=== PATIENT | male | born 2000 | race Caucasian/White ===

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

== ENCOUNTER 2019-02-07 01:37 | Emergency (ER) | payer MEDICAID ==
[2019-02-07] MEDS ORDERED: KETOROLAC 30 MG/ML VIAL IVP ONE (02:00)
[2019-02-07 02:14] LABS: ABSOLUTE NEUTROPHIL COUNT 3.29; BASO % 0.5 % (0-6); EOS % 1.7 % (0-6); GRAN % 55.9 % (47-80); HEMATOCRIT 41.6 % (42.0-52.0); HEMOGLOBIN 14.5 gm/dl (14.0-18.0); LYMPH % 33.7 % (16-45); MEAN CELL VOLUME 82.4 fl (81-97); MEAN CORPUSCULAR HEMOGLOBIN 28.7 pg (27-33); MEAN CORPUSCULAR HGB CONC 34.9 g/dl (32-36); MEAN PLATELET VOLUME 10.4 fl (7.4-10.4); MONO % 8.2 % (0-9); PLATELET COUNT 282 K/uL (130-400); RED BLOOD COUNT 5.05 M/uL (4.40-5.70); WHITE BLOOD COUNT W/O DIFF 5.9 K/uL (4.2-12.2)
[2019-02-07] MEDS ORDERED: 0.9 % SODIUM CHLORIDE 1,000 ML BAG IV ONE (02:53)
--- NOTE | 2019-02-07 03:09 | Emergency Department Record ---
History of Present Illness - General Chief complaint: Male Urogenital Problem Stated complaint: GROIN PAIN Time Seen by Provider: 02/07/19 01:52 Source: Patient Mode of Arrival: Ambulatory Limitations: No limitations - History of Present Illness Initial comments: pt states his l testicle has been hurting for 3 days and is getting worse. it hurts into his groin. he was seen in [facility] and was told he needed an us. it has been scheduled for next week MD Complaint: Testicle pain Onset/Timin -: Days(s) Location: Left inguinal region, Left testicle Severity scale (1-10): 9 Quality: Aching, Sharp Consistency: Constant Improves with: None Worsens with: None Reports: Denies other symptoms - Related Data Sexually active: No Previous Rx's Medication Instructions Recorded Doxycycline Hyclate 100 mg PO BID #20 cap 02/07/19 Allergies Allergy/AdvReac Type Severity Reaction Status Date / Time Penicillins Allergy PT UNSURE Unverified 02/06/19 18:38 OF REACTION Travel Screening - Travel/Exposure Within Last 30 Days Have you traveled within the last 30 days?: No - Travel/Exposure Within Last Year Have you traveled outside the [place] in the last year?: No - Additonal Travel Details Have you been exposed to anyone with a communicable illness?: No Review of Systems Reviewed: No additional complaints except as noted below Constitutional: Reports: As per HPI. Denies: Chills, Fever, Malaise, Night sweats, Weakness, Weight change Eyes: Reports: As per HPI. Denies: Eye discharge, Eye pain, Photophobia, Vision change ENT: Reports: As per HPI. Denies: Congestion, Dental pain, Ear pain, Epistaxis, Hearing loss, Throat pain Respiratory: Reports: As per HPI. Denies: Cough, Dyspnea, Hemoptysis, Stridor, Wheezes Cardiovascular: Reports: As per HPI. Denies: Arrhythmia, Chest pain, Dyspnea on exertion, Edema, Murmurs, Orthopnea, Palpitations, Paroxysmal nocturnal dyspnea, Rheumatic Fever, Syncope Endocrine: Reports: As per HPI. Denies: Fatigue, Heat or cold intolerance, Polydipsia, Polyuria Gastrointestinal: Reports: As per HPI. Denies: Abdominal pain, Constipation, Diarrhea, Hematemesis, Hematochezia, Melena, Nausea, Vomiting Genitourinary: Reports: As per HPI, Testicular pain. Denies: Dysuria, Frequency, Hematuria, Incontinence, Retention, Testicular mass, Urgency Musculoskeletal: Reports: As per HPI. Denies: Arthralgia, Back pain, Gout, Joint swelling, Myalgia, Neck pain Skin: Reports: As per HPI. Denies: Bruising, Change in color, Change in hair/nails, Lesions, Pruritus, Rash Neurological: Reports: As per HPI. Denies: Abnormal gait, Confusion, Headache, Numbness, Paresthesias, Seizure, Tingling, Tremors, Vertigo, Weakness Psychiatric: Reports: As per HPI. Denies: Anxiety, Auditory hallucinations, Depression, Homicidal thoughts, Suicidal thoughts, Visual hallucinations Hematological/Lymphatic: Reports: As per HPI. Denies: Anemia, Blood Clots, Easy bleeding, Easy bruising, Swollen glands Past Medical History - SOCIAL HISTORY Smoking Status: Never smoker Alcohol Use: None Drug Use: Occasional Drug Use Detail:: Marijuana - RESPIRATORY Hx Respiratory Disorders: Yes Hx Asthma: Yes - CARDIOVASCULAR Hx Cardio Disorders: No - NEURO Hx Neuro Disorders: No - GI Hx GI Disorders: No - Hx Genitourinary Disorders: No - ENDOCRINE Hx Endocrine Disorders: Yes Hx Thyroid Disease: Yes - MUSCULOSKELETAL Hx Musculoskeletal Disorders: No - PSYCH Hx Psych Problems: No - HEMATOLOGY/ONCOLOGY Hx Hematology/Oncology Disorders: No Family Medical History Any Significant Family History?: No Hx Cancer: Grandparents Hx Diabetes: Grandparents Physical Exam - General General Appearance: Alert, Oriented x3, Cooperative, Mild distress - Head Head exam: Normal inspection - Eye Eye exam: Normal appearance, PERRL, EOMI Pupils: Normal accommodation - ENT ENT exam: Normal exam, Mucous membranes moist, Normal external ear exam, Normal orophraynx Ear exam: Normal external inspection. negative: External canal tenderness Nasal Exam: Normal inspection. negative: Discharge, Sinus tenderness Mouth exam: Normal external inspection, Tongue normal Teeth exam: Normal inspection. negative: Dental caries Throat exam: Normal inspection. negative: Tonsillar erythema, Tonsillar exudate - Neck Neck exam: Normal inspection, Full ROM. negative: Tenderness - Respiratory Respiratory exam: Normal lung sounds bilaterally. negative: Respiratory di stress - Cardiovascular Cardiovascular Exam: Regular rate, Normal rhythm, Normal heart sounds - GI/Abdominal GI/Abdominal exam: Soft, Normal bowel sounds. negative: Tenderness - Rectal Rectal exam: Deferred - exam: Testicular tenderness, Other (tender into inguinal canal) - Extremities Extremities exam: Normal inspection, Full ROM, Normal capillary refill. negative: Tenderness - Back Back exam: Reports: Normal inspection, Full ROM. Denies: Muscle spasm, Rash noted, Tenderness - Neurological Neurological exam: Alert, CN II-XII intact, Normal gait, Oriented X3 - Psychiatric Psychiatric exam: Normal affect, Normal mood - Skin Skin exam: Dry, Intact, Normal color, Warm Course Vital Signs 02/07/19 01:43 Temperature 98.1 F Pulse Rate [ 80 Pulse Ox Probe] Respiratory 20 Rate Blood Pressure 119/75 [Left Arm] Pulse Ox 99 - Reevaluation(s) Reevaluation #1: 02/07/19 03:40 ct neg Reevaluation #2: 02/07/19 03:45 pt being treated for epididimytis but being transferred for us to r/o torsion Medical Decision Making - Lab Data Result diagrams: 02/07/19 02:05 02/07/19 02:05 Lab Results 02/07/19 Range/Units 02:05 WBC 5.9 (4.2-12.2) K/uL RBC 5.05 (4.40-5.70) M/uL Hgb 14.5 (14.0-18.0) gm/dl Hct 41.6 L (42.0-52.0) % MCV 82.4 (81-97) fl MCH 28.7 (27-33) pg MCHC 34.9 (32-36) g/dl RDW 12.0 (11.5-14.5) % Plt Count 282 (130-400) K/uL MPV 10.4 (7.4-10.4) fl Gran % 55.9 (47-80) % Lymphocytes % 33.7 (16-45) % Monocytes % 8.2 (0-9) % Eosinophils % 1.7 (0-6) % Basophils % 0.5 (0-6) % Absolute Neutrophils 3.29 Disposition Disposition: Transfer Clinical Impression: Acute epididymitis, Testicular pain, left Disposition: Acute Care Hospital Transfer Transfer To: [facility] Reason For Transfer: needs us of testicle Accepting Physician: dr lowery Time Discussed w/Accepting Physician: 03:42 Condition: (2) Stable Instructions: Epididymo-Orchitis (ED), Scrotal Pain (ED), Testicle Pain (ED) Additional Instructions: go directly to [facility] er for Prescriptions: Doxycycline Hyclate 100 mg PO BID #20 cap Forms: Patient Portal Access Quality - Quality Measures Quality Measures: N/A - Blood Pressure Screening Does Patient Have Any of the Following: No Blood Pressure Classification: Normal BP Reading Systolic Measurement: 119 Diastolic Measurement: 75 Screening for High Blood Pressure: < Normal BP, F/U Not Required > [G8783]
[2019-02-07 03:10] LABS: URINE APPEARANCE CLEAR; URINE BILIRUBIN NEGATIVE (NEGATIVE); URINE BLOOD NEGATIVE (NEGATIVE); URINE COLOR YELLOW; URINE GLUCOSE (UA) NEGATIVE (NEGATIVE); URINE KETONE NEGATIVE (NEGATIVE); URINE LEUKOCYTE ESTERASE NEGATIVE (NEGATIVE); URINE NITRITE NEGATIVE (NEGATIVE); URINE PROTEIN NEGATIVE (NEGATIVE); URINE UROBILINOGEN 0.2 E.U./dL (0.20 - 1.00)
[2019-02-07] MEDS ORDERED: CEFTRIAXONE 250 MG VIAL IM ONE (03:33)
[2019-02-07 03:40] LABS: BLOOD UREA NITROGEN 9 mg/dL (6-20); CREATININE 0.7 mg/dL (0.7-1.2); EST GLOMERULAR FILTRATION RATE > 60 mL/min
[2019-02-07 03:42] LABS: GLUCOSE,RANDOM 125 mg/dL (74-109)
[2019-02-07] MEDS ORDERED: DOXYCYCLINE HYCLATE 100 MG CAPSULE PO ONE (03:42)
--- NOTE | 2019-02-11 06:56 | CT SCAN REPORT ---
EXAM: CT SCAN PELVIS W CONTRAST HISTORY: GROIN AND LEFT TESTICULAR PAIN. COMPARISON: None. TECHNIQUE: After the uneventful administration of intravenous contrast, contiguous CT sections obtained through the pelvis in the axial plane. Coronal and sagittal reformats. FINDINGS: GI tract within the pelvis is nondilated. A normal appendix is seen. Urinary bladder is low in volume limiting evaluation but appears grossly unremarkable. No free air or fluid evident. No adenopathy. The pelvic wall and inguinal regions appear intact without evidence for herniation. Bones appear grossly unremarkable. IMPRESSION: 1. ETIOLOGY FOR THE PATIENT'S PAIN NOT EVIDENT. 2. A PRELIMINARY REPORT PROVIDED BY THE RADIOLOGIST KITCHEN WORK SUPERVISOR. JOB NUMBER: [id number] MTDD
== END 2019-02-07 03:55 | disposition short-term general hospital (02) ==
LOC: ER 01:37
DX: N45.3 Epididymo-orchitis (principal)
CPT/HCPCS: 99285 ×2; 96374; 96372; 85025; 80048; 81003; 72193; Q9967; J1885; J0696; J7030